=== PATIENT | female | born 1990 | race Asian ===

== ENCOUNTER → 2017-10-12 09:15 | Outpatient (CLI) | payer SELFPAY ==
--- NOTE | 2017-10-12 | DI.RAD.S_ITS ---
PROCEDURE: XR LUMBAR SPINE 2-3V INDICATIONS: Lipoma at T11 T 12 region. Low back pain TECHNIQUE: 3 views of the lumbar spine were acquired. COMPARISON: None. FINDINGS: Bones: No fracture or focal osseous destruction. Mild endplate sclerosis and spurring at L4-L5 and L5-S1. There is diffuse mild facet arthropathy. Minimal narrowing of L4-L5 and L5-S1 disc spaces. Soft tissues: Overlying bowel gas pattern is normal. No suspicious soft tissue calcifications. IMPRESSION: Mild lower lumbar degenerative disc disease and facet arthropathy. Dictated by: Joseph Arias M.D. on 10/12/2017 at 9:03 Approved by: Joseph Arias M.D. on 10/12/2017 at 9:05
== END ==
PROVIDERS: Visit Provider Chiropractor
DX: M51.36 Other intervertebral disc degeneration, lumbar region (principal); M51.37 Other intervertebral disc degeneration, lumbosacral region; M47.816 Spondylosis without myelopathy or radiculopathy, lumbar region; M47.817 Spondylosis without myelopathy or radiculopathy, lumbosacral region; M54.5 Low back pain
CPT/HCPCS: 72100

== ENCOUNTER → 2019-02-11 10:38 | Outpatient (CLI) | payer OTHER, SELFPAY ==
--- NOTE | 2019-02-11 | DI.NM.S_ITS ---
PROCEDURE: NM UPTAKE AND SCAN RADIOPHARMACEUTICAL: 340 ?Ci I-123 sodium iodide by mouth. INDICATIONS: Thyrotoxicosis TECHNIQUE: I-123 sodium iodide was administered orally. Anterior neck images were obtained, and iodine uptake by the thyroid gland calculated using pct's software. COMPARISON: None. FINDINGS: Morphology: The thyroid gland has normal morphology and uniform activity. No 'cold' or 'hot' thyroid nodules are identified. Uptake: The 6 hour thyroid uptake is 77.7%; normal ranges are from 6-18%. The 24 hour thyroid uptake is 82.3%; normal ranges are from 10-30%. IMPRESSION: 1. Diffusely enlarged thyroid gland with uniformly increased activity consistent with diffuse toxic goiter (Graves disease). Dictated by: Maryana Tong M.D. on 02/12/2019 at 13:06 Approved by: Maryana Tong M.D. on 02/12/2019 at 13:07
== END ==
PROVIDERS: Visit Provider Family Medicine
DX: E05.90 Thyrotoxicosis, unspecified without thyrotoxic crisis or storm (principal); E04.9 Nontoxic goiter, unspecified
CPT/HCPCS: 78014; A9516

== ENCOUNTER → 2019-02-12 11:04 | Outpatient (CLI) | payer OTHER, SELFPAY ==
--- NOTE | 2019-02-12 | DI.RAD.S_ITS ---
PROCEDURE: XR LUMBAR SPINE MIN 4V INDICATIONS: Scoliosis, unspecified TECHNIQUE: 2 views of the lumbar spine were acquired. COMPARISON: [facility], CR, XR LUMBAR SPINE 2-3V, 10/12/2017, 9:12. FINDINGS: Bones: 5 nonrib-bearing vertebrae are present. There is no significant curvature of the lumbar spine with minimal, gentle dextrocurvature at the lumbosacral junction. This may be related to patient positioning. No vertebral body compression fractures. No suspicious bony lesions. Soft tissues: Overlying bowel gas pattern is normal. No suspicious soft tissue calcifications. IMPRESSION: Lumbar spine without acute radiographic abnormalities. No significant spondylosis. Overall alignment appears within normal limits. Dictated by: Baldomero Hall M.D. on 02/12/2019 at 13:02 Approved by: Baldomero Hall M.D. on 02/12/2019 at 13:05
--- NOTE | 2019-02-12 | DI.RAD.S_ITS ---
PROCEDURE: XR THORACIC SPINE 3V INDICATIONS: Scoliosis, unspecified TECHNIQUE: 3 views of the thoracic spine were acquired. COMPARISON: None. FINDINGS: Bones: No fractures or dislocations. No suspicious bony lesions. 12 pairs of ribs are noted, and appear intact where visualized. Soft tissues: No paravertebral stripe thickening. IMPRESSION: Thoracic spine without acute radiographic abnormalities or significant spondylosis. Dictated by: Baldomero Hall M.D. on 02/12/2019 at 13:05 Approved by: Baldomero Hall M.D. on 02/12/2019 at 13:06
== END ==
PROVIDERS: Visit Provider Family Medicine
DX: M41.9 Scoliosis, unspecified (principal)
CPT/HCPCS: 72072; 72110